=== PATIENT | male | born 1990 | race American Indian/Alaskan Native ===

== ENCOUNTER 2019-07-10 10:22 | Emergency (ER) | payer SELFPAY ==
[2019-07-10 10:27] VITALS: BP 122/76
--- NOTE | 2019-07-10 11:46 | Emergency Department Report ---
Chief Complaint: Urogenital-Male Stated Complaint: STD CHECK Time Seen by Provider: 07/10/19 11:04 - HPI History of Present Illness: This is a 29-year-old male nontoxic, well nourished in appearance, no acute signs of distress presents to the ED for STD check. Patient denies any penile discharge. Patient stated he is concerned because his girlfriend told him that she was diagnosed with Trichomonas. Patient stated he is asymptomatic and just wants to be tested. Patient denies any testicular pain or swelling. Patient denies any penile ulcers or lesions. Patient denies any nausea, vomiting, chest pain, shortness of breathe, fever, chills, headache, back pain, numbness, tingling, stiff neck. Patient denies any urinary symptoms. Patient denies any allergies or PMH. - Exam Vital Signs: Vital Signs 07/10/19 10:25 Temperature 97.8 F Pulse Rate 64 Blood Pressure 122/76 Physical Exam: Normal bowel pain. No pelvic pain. No testicular pain or swelling. No penile irritation or pain. MSE screening note: Focused history and physical exam performed. Due to findings the following was ordered: ED Medical Decision Making - Medical Decision Making This is a 29-year-old male that presents with nonmedical emergency. Patient is stable and was examined by me. Patient is asymptomatic and denies any symptoms. Patient states he just wants to be tested for STD. I will refer the patient [facility]. At time of discharge, the patient does not seem toxic or ill in appearance. No acute signs of distress noted. Patient agrees to discharge treatment plan of care. No further questions noted by the patient. ED Disposition for MSE Clinical Impression: Possible exposure to STD Disposition: Z-07 MED SCREENING EXAM-LEFT Is pt being admited?: No Does the pt Need Aspirin: No Condition: Stable Instructions: Safe Sex (ED) Additional Instructions: Follow-up with a primary care doctor in 3-5 days or if symptoms worsen and continue return to emergency room as soon as possible. Referrals: PRIMARY MD CHEIKH [Primary Care Provider] - 3-5 Days SHERYL PÉREZ MD [Staff Physician] - 3-5 Days [facility] [Outside] - 3-5 Days [facility] [Outside] - 3-5 Days
== END 2019-07-10 12:07 | disposition left against medical advice (07) ==
LOC: ED 10:22
DX: Z11.3 Encounter for screening for infections with a predominantly sexual mode of transmission (principal)

== ENCOUNTER 2022-03-18 13:39 | Emergency (ER) | payer SELFPAY ==
--- NOTE | 2022-03-18 16:40 | Emergency Department Report ---
ED ENT HPI - General Chief complaint: Earache Stated complaint: EAR INFECTION Time Seen by Provider: 03/18/22 16:32 Source: patient Mode of arrival: Ambulatory Limitations: No Limitations - History of Present Illness Initial comments: 32-year-old male presents to the ER today with complaints of right ear pain. Onset a couple days ago. Patient states that he noticed that he was a bump in his ear and he "popped it" today and noticed green-yellow discharge. He states that he thinks he may have gotten some water in his ear when he was showering. He denies any fever, chills, loss of hearing or any additional symptoms. MD complaint: ear pain -: days(s) (2) - Related Data Previous Rx's Medication Instructions Recorded Last Taken Type Carbamide Peroxide [Earwax 15 ml OT BID #1 bottle 04/27/15 Unknown Rx Treatment] Amoxicillin/K Clav Tab [Augmentin 1 tab PO Q12HR #14 tab 03/18/22 Unknown Rx 875 mg] Ciprofloxacin HCl/Dexameth 2 drop OTIC BID 7 Days #7.5 ml 03/18/22 Unknown Rx [Ciprodex Otic Suspension] Ibuprofen [Motrin] 600 mg PO Q8H PRN #30 tablet 03/18/22 Unknown Rx Allergies Allergy/AdvReac Type Severity Reaction Status Date / Time No Known Allergies Allergy Unverified 03/06/14 10:52 ED Dental HPI - General Chief complaint: Earache Stated complaint: EAR INFECTION Time Seen by Provider: 03/18/22 16:32 Source: patient Mode of arrival: Ambulatory Limitations: No Limitations - Related Data Previous Rx's Medication Instructions Recorded Last Taken Type Carbamide Peroxide [Earwax 15 ml OT BID #1 bottle 04/27/15 Unknown Rx Treatment] Amoxicillin/K Clav Tab [Augmentin 1 tab PO Q12HR #14 tab 03/18/22 Unknown Rx 875 mg] Ciprofloxacin HCl/Dexameth 2 drop OTIC BID 7 Days #7.5 ml 03/18/22 Unknown Rx [Ciprodex Otic Suspension] Ibuprofen [Motrin] 600 mg PO Q8H PRN #30 tablet 03/18/22 Unknown Rx Allergies Allergy/AdvReac Type Severity Reaction Status Date / Time No Known Allergies Allergy Unverified 03/06/14 10:52 ED Review of Systems ROS: Stated complaint: EAR INFECTION Other details as noted in HPI Comment: All other systems reviewed and negative Constitutional: denies: chills, fever Eyes: denies: eye pain, eye discharge, vision change ENT: ear pain Respiratory: denies: cough, shortness of breath, wheezing Endocrine: no symptoms reported Gastrointestinal: denies: abdominal pain, nausea, diarrhea Genitourinary: denies: urgency, dysuria Musculoskeletal: denies: back pain, joint swelling, arthralgia Skin: denies: rash, lesions Neurological: denies: headache, weakness, paresthesias Psychiatric: denies: anxiety, depression Hematological/Lymphatic: denies: easy bleeding, easy bruising, swollen glands ED Past Medical Hx - Social History Smoking Status: Never Smoker Substance Use Type: None - Medications Home Medications: Home Medications Medication Instructions Recorded Confirmed Last Taken Type Carbamide Peroxide [Earwax 15 ml OT BID #1 bottle 04/27/15 03/18/22 Unknown Rx Treatment] Amoxicillin/K Clav Tab [Augmentin 1 tab PO Q12HR #14 tab 03/18/22 Unknown Rx 875 mg] Ciprofloxacin HCl/Dexameth 2 drop OTIC BID 7 Days #7.5 ml 03/18/22 Unknown Rx [Ciprodex Otic Suspension] Ibuprofen [Motrin] 600 mg PO Q8H PRN #30 tablet 03/18/22 Unknown Rx ED Physical Exam - General Limitations: No Limitations General appearance: alert, in no apparent distress - Head Head exam: Present: atraumatic, normocephalic, normal inspection - Expanded ENT Exam Expanded TM/Canal exam: Cerumen Impaction: Right TM, Canal Discharge: Right TM (there appears to be a small abscess anterior aspect of ear canal on lateral wall with small amt of yellow discharg. It is ttp. Ear canal swollen. No cellulitis), Canal Tenderness: Right TM - Respiratory Respiratory exam: Absent: respiratory distress - Cardiovascular Cardiovascular Exam: Present: regular rate - Neurological Exam Neurological exam: Present: alert, oriented X3, CN II-XII intact, normal gait - Psychiatric Psychiatric exam: Present: normal affect, normal mood - Skin Skin exam: Present: intact ED Course Vital Signs 03/18/22 14:37 Temperature 98.7 F Pulse Rate 88 Respiratory 18 Rate Blood Pressure 118/69 [Right] O2 Sat by Pulse 100 Oximetry Critical care attestation.: If time is entered above; I have spent that time in minutes in the direct care of this critically ill patient, excluding procedure time. ED Disposition Clinical Impression: Abscess of right ear canal, Otitis externa Disposition: 01 HOME / SELF CARE / HOMELESS Is pt being admited?: No Does the pt Need Aspirin: No Condition: Stable Instructions: Otitis Externa, [id number], Skin Abscess, [id number] Additional Instructions: I recommend that you use antibiotic eardrops and take the oral antibiotics as prescribed. Take the ibuprofen to help with pain. I do recommend trying avoid any water in the ear and also avoid any manipulation to the ear canal. You can apply warm compress over the ear. Follow-up with your primary care doctor. Return to the ER if worse. Prescriptions: Amoxicillin/K Clav Tab [Augmentin 875 mg] 1 tab PO Q12HR #14 tab Ciprofloxacin HCl/Dexameth [Ciprodex Otic Suspension] 2 drop OTIC BID 7 Days #7.5 ml Ibuprofen [Motrin] 600 mg PO Q8H PRN #30 tablet PRN Reason: Pain Referrals: CRITSAL BROWNE MD [Staff Physician] - 3-5 Days Forms: Work/School Release Form(ED) Time of Disposition: 16:44
[2022-03-18 17:08] VITALS: BP 124/80
== END 2022-03-18 17:05 | disposition home or self-care (01) ==
LOC: ED 13:39
DX: H66.41 Suppurative otitis media, unspecified, right ear (principal); H60.91 Unspecified otitis externa, right ear
CPT/HCPCS: 99282